=== PATIENT | male | born 1960 | race Caucasian/White ===

== ENCOUNTER 2018-05-10 11:22 | Emergency (ER) | payer OTHER ==
[~2018-05-10] VITALS: Ht 170.2 cm; Wt 112.1 kg
[~2018-05-10 11:22] MED LIST: HYDR25TA6 PO; LISI30TA47 PO; NAPR500T8 PO; OMEP40CA6 PO
[2018-05-10 11:50] VITALS: Ht 170.2 cm; Wt 112.1 kg
[2018-05-10] MEDS ORDERED: SODIUM CHLORIDE 0.9% 1L BAG IV* STA (12:05)
[2018-05-10] MEDS ORDERED: ACETAMINOPHEN 325 MG TAB PO STA (12:05)
--- NOTE | 2018-05-10 12:05 | ERD ---
ER Documentation Chief Complaint Chief Complaint painful urination, abdominal pain dizziness & fever 1 day HPI The patient is a 57-year-old male, presenting to the ER because of fever, dysuria, abdominal pain for 1 day, denies similar symptoms previously, denies cough, congestion, neck pain, chest pain, dyspnea, vomiting, dysuria, diarrhea. He is smokes and drinks, denies illicit drug Past medical history: Hypertension, chronic low back pain Past surgical history: Bilateral inguinal herniorrhaphy and umbilical herniorrhaphy ROS All systems reviewed and are negative except as per history of present illness. Medications Home Meds Active Scripts Ibuprofen* (Motrin*) 600 Mg Tab, 600 MG PO Q6H PRN for PAIN AND OR ELEVATED TEMP, #20 TAB Prov:BRITT ALVARES MD 05/10/18 Phenazopyridine Hcl* (Pyridium*) 200 Mg Tab, 200 MG PO TID PRN for URINARY PAIN, #6 TAB Prov:BRITT ALVARES MD 05/10/18 Cephalexin* (Keflex*) 500 Mg Capsule, 500 MG PO QID for 10 Days, CAP Prov:BRITT ALVARES MD 05/10/18 Reported Medications Tamsulosin Hcl* (Tamsulosin Hcl*) 0.4 Mg Cap.er.24h, 0.4 MG PO HS, CAP 05/10/18 Hydrochlorothiazide* (Hydrochlorothiazide*) 25 Mg Tab, 25 MG PO DAILY, #30 TAB 05/10/18 Lisinopril* (Lisinopril*) 40 Mg Tablet, 40 MG PO DAILY, #30 TAB 05/10/18 Discontinued Reported Medications Omeprazole* (Omeprazole*) 40 Mg Capsule.dr, 40 MG PO DAILY, CAP 08/08/13 Hydrochlorothiazide (Hydrochlorothiazide) 25 Mg Tablet, 25 MG PO DAILY 05/14/13 Naproxen* (Naproxen EC*) 500 Mg Tablet.dr, 500 MG PO BID 05/14/13 Lisinopril* (Lisinopril*) 30 Mg Tablet, 40 MG PO DAILY 05/14/13 Allergies Allergies: Coded Allergies: No Known Allergy (Unverified , 05/10/18) PMhx/Soc Anesthesia Reaction: No 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 Head: Atraumatic. Eyes: Normal Conjunctiva. ENT: Normal External Ears, Nose and Mouth. Neck: Full range of motion. No meningismus. Resp: Clear to auscultation bilaterally. Cardio: Regular rate and rhythm. Abd: Soft, non distended, normal bowel sounds, diffuse and mild abdominal tenderness, no rigidity/rebound/CVA tenderness Skin: No petechiae or rashes. Back: No midline or flank tenderness. Ext: No cyanosis, or edema. Neur: Awake and alert. No focal deficit Psych: Normal Mood and Affect. Result Diagram: 05/10/18 1211 05/10/18 1211 Results 24 hrs Laboratory Tests Test 05/10/18 12:11 05/10/18 12:43 05/10/18 12:52 05/10/18 13:00 White Blood Count 9.5 10^3/ul Red Blood Count 4.67 10^6/ul Hemoglobin 14.3 g/dl Hematocrit 42.5 % Mean Corpuscular 91.0 fl Volume Mean Corpuscular 30.6 pg Hemoglobin Mean Corpuscular 33.6 g/dl Hemoglobin Concen t Red Cell 12.5 % Distribution Width Platelet Count 217 10^3/UL Mean Platelet 8.5 fl Volume Immature 0.400 % Granulocytes % Neutrophils % 88.8 % Lymphocytes % 8.3 % Monocytes % 2.2 % Eosinophils % 0.0 % Basophils % 0.3 % Nucleated Red 0.0 /100WBC Blood Cells % Immature 0.040 10^3/ul Granulocytes # Neutrophils # 8.5 10^3/ul Lymphocytes # 0.8 10^3/ul Monocytes # 0.2 10^3/ul Eosinophils # 0.0 10^3/ul Basophils # 0.0 10^3/ul Nucleated Red 0.0 10^3/ul Blood Cells # Prothrombin Time 14.3 Sec Prothrombin Time 1.1 Ratio INR International 1.10 Normalized Ratio Activated 31.8 Sec Partial Thrombopl ast Time Sodium Level 134 mmol/L Potassium Level 3.5 mmol/L Chloride Level 96 mmol/L Carbon Dioxide 29 mmol/L Level Anion Gap 9 Blood Urea 14 mg/dl Nitrogen Creatinine 0.74 mg/dl Est Glomerular > 60 mL/min Filtrat Rate mL/min Glucose Level 155 mg/dl Calcium Level 9.4 mg/dl Total Bilirubin 1.0 mg/dl Direct Bilirubin 0.00 mg/dl Indirect 1.0 mg/dl Bilirubin Aspartate Amino 26 IU/L Transf (AST/SGOT) Alanine 29 IU/L Aminotransferase (ALT/SGPT) Alkaline 84 IU/L Phosphatase Troponin I < 0.012 ng/ml Total Protein 7.5 g/dl Albumin 4.1 g/dl Globulin 3.40 g/dl Albumin/Globulin 1.20 Ratio Lactic Acid Level 1.3 mmol/L Urine Color YELLOW Urine Clarity SLIGHTLY CLOUDY Urine pH 6.0 Urine Specific 1.012 [place] Urine Ketones TRACE mg/dL Urine Nitrite NEGATIVE mg/dL Urine Bilirubin NEGATIVE mg/dL Urine NEGATIVE mg/dL Urobilinogen Urine Leukocyte 1+ Eric/ul Esterase Urine Microscopic 15 /HPF RBC Urine Microscopic 105 /HPF WBC Urine Bacteria MODERATE /HPF Urine Mucus FEW /HPF Urine Hemoglobin 1+ mg/dL Urine Glucose NEGATIVE mg/dL Urine Total 1+ mg/dl Protein Bedside Urine pH 6.0 (LAB) Bedside Urine 2+ Protein (LAB) Bedside Urine Negative Glucose (UA) Bedside Urine Negative Ketones (LAB) Bedside Urine 1+ Blood Bedside Urine Negative Nitrite (LAB) Bedside Urine Trace Leukocyte Esteras e (L Test 05/10/18 15:00 Lactic Acid Level 1.3 mmol/L Current Medications Medications Dose Sig/Boogie Start Time Status Last (Trade) Ordered Route PRN Stop Time Admin Dose Reason Admin 650 mg ONCE STAT 05/10/18 DC 05/10/18 Acetaminophen PO 12:05 12:25 (Tylenol 05/10/18 12:07 Tab) Sodium 1,980 ml BOLUS OVER 2 05/10/18 DC 05/10/18 Chloride HOURS STAT 12:05 12:26 (NS) IV* 05/10/18 12:07 Piperacillin 100 ml @ ONCE ONCE 05/10/18 DC 05/10/18 Sod/ 200 mls/hr IVPB 12:30 12:38 Tazobactam 05/10/18 12:59 Sod Procedures/MDM [place] [address] Radiology Main Line: [phone] DIAGNOSTIC IMAGING REPORT Patient: STEVE LAI : 1960 Age: 57 Sex: M MR #: [id number] DOS: 05/10/18 1214 Ordering MD: BRITT ALVARES MD Location: E/R Room/Bed: PROCEDURE: CT Abdomen and Pelvis Without Intravenous Contrast CLINICAL INDICATION: Abdominal pain TECHNIQUE: Axial computed tomography images of the abdomen and pelvis without intravenous contrast. Sagittal and coronal reformatted images were created and reviewed. CTDIvol (mGy) = <22.18 mGy>; total DLP (mGy-cm) = <1398.95 mGy.cm> This CT exam was performed using one or more of the following dose reduction techniques: automated exposure control, adjustment of the mA and/or kV according to patient size, and/or use of iterative reconstruction technique. DICOM images are kirill ilable. COMPARISON: None FINDINGS: LUNG BASES: The lung bases appear slightly hyperinflated suggesting emphysema. There is a small rim calcified lesion along the right diaphragmatic pleura measuring 1.8 cm in diameter, likely benign. ABDOMEN: LIVER: Mild hepatomegaly, 18.5 cm. Probable mild hepatic steatosis. GALLBLADDER AND BILE DUCTS: Unremarkable No calcified stones. No ductal dilation. PANCREAS: Unremarkable No ductal dilation. SPLEEN: Unremarkable No splenomegaly. ADRENALS: Mildly hypertrophic adrenals. KIDNEYS AND URETERS: There is mild right perinephric stranding and moderate right periureteric stranding. No stones are seen in the kidneys or ureters. STOMACH AND BOWEL: Colonic diverticula without evidence of diverticulitis. No evidence for small bowel obstruction, free air, or abscess. PELVIS: APPENDIX: Normal appendix. BLADDER: The anterior urinary bladder is displaced into the right inguinal canal and is a portion in the inguinal canal is somewhat distended. There is also fat within the right inguinal hernia and there is slight fat stranding adjacent to the herniated portion of the urinary bladder. There is also a fat-containing left inguinal hernia. REPRODUCTIVE: Normal size prostate with small central calcification. ABDOMEN and PELVIS: INTRAPERITONEAL SPACE: See above. BONES/JOINTS: Degenerative and hypertrophic change of the spine with rightward scoliosis. Deformities of the lower lumbar sacral spine including partial fusion of L4 and L5 and congenital or post surgical deformity of the posterior elements. No lytic or blastic bony lesions. SOFT TISSUES: See above. VASCULATURE: Mild atherosclerotic change of the abdominal vasculature. No evidence for aneurysm. LYMPH NODES: Unremarkable No enlarged lymph nodes. OTHER FINDINGS: IMPRESSION: 1. Right greater than left fat-containing inguinal hernias with a moderate portion of the anterior urinary bladder displaced into the inguinal canal with slight adjacent stranding. Right perinephric and periureteric stranding without visualized stone. This could perhaps be due to displacement of the right UVJ due to the bladder herniation. Pyelonephritis cannot be excluded but no bladder wall thickening is seen to suggest ascending infection. 2. Colonic diverticula without evidence of diverticulitis. No evidence for small bowel obstruction, free air, or abscess. RPTAT: HLBE Physician Daniel Date Time Electronically viewed and signed by Josie Villatoro Physician on 05/10/2018 13:25 LE/ CC: BRITT ALVARES MD [id number] [place] [address] Radiology Main Line: [phone] DIAGNOSTIC IMAGING REPORT Patient: STEVE LAI : 1960 Age: 57 Sex: M MR #: [id number] DOS: 05/10/18 1214 Ordering MD: BRITT ALVARES MD Location: E/R Room/Bed: AMENDMENT: 05/10/2018 2:02:42 PM Awais Fuentes M.d Comparison: 05/10/2018 PROCEDURE: US Abdomen. CLINICAL INDICATION: abdominal pain TECHNIQUE: Multiple real-time images were acquired of the patient's right upper quadrant abdomen and retroperitoneum utilizing a high resolution transducer. COMPARISON: None FINDINGS: The liver demonstrates increased echogenicity. The liver is enlarged in size and no focal solid lesions are seen. The liver measures 20.8 cm in length. The portal vein is patent with normal direction of flow. No intrahepatic biliary dilatation is seen. No gallstones are identified within the gallbladder. There is a small amount of sludge within the gallbladder. There is no pericholecystic fluid or gallbladder wall thickening. The common bile duct measures 6 mm in maximal dimension. The visualized portions of the pancreas are unremarkable. The tail of the pancreas is not seen. No free fluid is identified. The right kidney is normal in size, and demonstrate normal echogenicity and cortical thickness. The right kidney measures 11.5 cm in long dimension. There is no evidence of hydronephrosis. There are no kidney stones. RPTAT: AA IMPRESSION: Mild hepatomegaly with fatty liver. Small amount of sludge within the gallbladder. .Awais Fuentes MD, MD Date Time Electronically viewed and signed by .Awais Fuentes MD, MD on 05/10/2018 14:01 .S/ CC: BRITT ALVARES MD [id number] [place] [address] Radiology Main Line: [phone] DIAGNOSTIC IMAGING REPORT Patient: STEVE LAI : 1960 Age: 57 Sex: M MR #: [id number] DOS: 05/10/18 1205 Ordering MD: BRITT ALVARES MD Location: E/R Room/Bed: PROCEDURE: XR Chest. CLINICAL INDICATION: Sepsis TECHNIQUE: Portable single view of the chest COMPARISON: CR CHEST 08/07/2014 FINDINGS: The cardiomediastinal silhouette appears within normal limits. A small bulge in right diaphragmatic contours seen, corresponding to the small calcified lesion seen on abdominal CT. No acute infiltrate, pleural effusion, or overt congestive heart failure. Improved lung volumes compared with prior. Degenerative change of the spine.. IMPRESSION: Improved lung volumes. No definite acute disease.. RPTAT: HLBE Josie Villatoro, Physician Date Time Electronically viewed and signed by Josie Villatoro, Physician on 05/10/2018 13:26 LE/ CC: BRITT ALVARES MD [id number] EKG: Read by emergency physician Rate/Rhythm: Normal Sinus Rhythm 86 beats/min QRS, ST, T-waves: No ST elevation, no T inversion, prolong QT Impression: Abnormal EKG MEDICAL MAKING DECISION: The patient is a 57-year-old male, presenting to the ER because of acute cystitis, possibly early right pyelonephritis. He was treated with ideal body weight IV fluid, Zosyn IV for acute cystitis, Tylenol for fever with good response. Repeat evaluation, he felt well, repeat abdominal exams were unremarkable. He is stable for present follow-up The differential diagnoses considered include but are not limited to cholelithiasis, cholecystitis, choledocholithiasis, cholangitis, pancreatitis, hepatitis, gastritis, peptic ulcer disease, gastric ulcer, appendicitis, cystitis, diverticulitis, partial small bowel obstruction. Departure Diagnosis: Primary Impression: UTI (urinary tract infection) Additional Impression: Prolonged QT syndrome Condition: Good Comments He was discharged with Keflex, Pyridium, Motrin I discussed the findings with the patient. I advised the patient to follow-up with the primary physician in about 1-2 days, sooner if needed and return if any concern. Disclaimer: Inadvertent spelling and grammatical errors are likely due to EHR/dictation software use and do not reflect on the overall quality of patient care. Also, please note that the electronic time recorded on this note does not necessarily reflect the actual time of the patient encounter. BRITT ALVARES MD May 10, 2018 12:05
[2018-05-10] MEDS ORDERED: PIPER-TAZO 3.375 GM IV (PMX) 100 ML IVPB ONE (12:30)
[2018-05-10] MEDS ORDERED: IBUP-1542 PO (15:50)
[2018-05-10] MEDS ORDERED: PHEN-538 PO (15:50)
[2018-05-10] MEDS ORDERED: CEPH-443 PO (15:50)
[2018-05-10] MEDS ORDERED: HYDR25TA6 PO (16:11)
[2018-05-10] MEDS ORDERED: LISI40TA3 PO (16:11)
[2018-05-10] MEDS ORDERED: TAMS0.4C2 PO (16:12)
[2018-05-10 16:18] VITALS: BP 105/53; PULSE 72; RESP 22
== END 2018-05-10 16:19 | disposition home or self-care (01) ==
LOC: E/R 11:22
DX: N39.0 Urinary tract infection, site not specified (principal); I45.81 Long QT syndrome; R10.9 Unspecified abdominal pain
CPT/HCPCS: 36415; 71045; 74176; 76705; 80053; 81001; 81003; 83605; 84484; 85025; 85610; 85730; 87040; 87086; 93005; 96374; J2543; J7030; Z7502; Z7610

== ENCOUNTER 2018-06-18 18:50 | Emergency (ER) | payer OTHER ==
[~2018-06-18] VITALS: Ht 172.7 cm; Wt 114.7 kg
[~2018-06-18 18:50] MED LIST changes: +CEPH-443 PO; +IBUP-1542 PO; -LISI30TA47 PO; +LISI40TA3 PO; -NAPR500T8 PO; -OMEP40CA6 PO; +PHEN-538 PO; +TAMS0.4C2 PO
[2018-06-18 19:03] VITALS: BP 171/85; PULSE 65; RESP 17; Ht 172.7 cm; Wt 114.7 kg
[2018-06-18] MEDS ORDERED: KETOROLAC 30 MG INJ IM STA (22:32)
[2018-06-18] MEDS ORDERED: HYDROCODONE/APAP (5/325) TAB PO ONE (23:00)
[2018-06-19] MEDS ORDERED: NAPR-985 PO (00:38)
[2018-06-19] MEDS ORDERED: PRED20TA PO (00:39)
--- NOTE | 2018-06-19 01:45 | ERD ---
ER Documentation Chief Complaint Chief Complaint R foot pain x15 days w/ swelling. good CMS, able to walk. no injury HPI History of Present Illness: 57-year-old male with past medical history of hypertension coming in today with complaint of right foot pain is been progressive for 15 days. Patient reports mild swelling. Patient denies any other associated symptoms. No decreased sensation. At home pharmacological/nonpharmacological treatment for symptoms: Denies Denies social concerns; Denies recent foreign travel ROS All systems reviewed and are negative except as per history of present illness. Medications Home Meds Active Scripts Prednisone* (Prednisone*) 20 Mg Tab, 40 MG PO DAILY for SWELLING/INFLAMMATION for 4 Days, TAB Prov:MELISSA SWANN V ADMINISTRATIVE OFFICE MANAGER 06/19/18 Naproxen* (Naprosyn*) 500 Mg Tablet, 500 MG PO BID PRN for PAIN AND/OR INFLAMMATION, #30 TAB Prov:MELISSA SWANN V ADMINISTRATIVE OFFICE MANAGER 06/19/18 Ibuprofen* (Motrin*) 600 Mg Tab, 600 MG PO Q6H PRN for PAIN AND OR ELEVATED TEMP, #20 TAB Prov:BRITT ALVARES MD 05/10/18 Phenazopyridine Hcl* (Pyridium*) 200 Mg Tab, 200 MG PO TID PRN for URINARY PAIN, #6 TAB Prov:BRITT ALVARES MD 05/10/18 Cephalexin* (Keflex*) 500 Mg Capsule, 500 MG PO QID for 10 Days, CAP Prov:BRITT ALVARES MD 05/10/18 Reported Medications Tamsulosin Hcl* (Tamsulosin Hcl*) 0.4 Mg Cap.er.24h, 0.4 MG PO HS, CAP 05/10/18 Hydrochlorothiazide* (Hydrochlorothiazide*) 25 Mg Tab, 25 MG PO DAILY, #30 TAB 05/10/18 Lisinopril* (Lisinopril*) 40 Mg Tablet, 40 MG PO DAILY, #30 TAB 05/10/18 Allergies Allergies: Coded Allergies: No Known Allergy (Unverified , 05/10/18) PMhx/Soc History of Surgery: Yes (bilateral inguinal/umbilical hernia) Anesthesia Reaction: No 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 Neck: Full range of motion. No meningismus. Resp: Clear to auscultation bilaterally Cardio: Regular rate and rhythm, no murmurs Abd: Soft, non tender, non distended. Normal bowel sounds Skin: No petechiae or rashes Back: No midline or flank tenderness Ext: No cyanosis, or edema, tenderness to palpation over top of right foot, no ecchymosis, no deformity, no erythema, no warmth, no breaks in skin. Tenderness to palpation over heel of right foot. Neurovascularly intact to bilateral feet. Neur: Awake and alert Psych: Normal Mood and Affect Results 24 hrs Current Medications Medications Dose Sig/Boogie Start Time Status Last (Trade) Ordered Route PRN Stop Time Admin Dose Reason Admin Ketorolac 30 mg ONCE STAT 06/18/18 DC 06/18/18 Tromethamine IM 22:32 06/18/18 22:39 (Toradol) 22:33 1 tab ONCE ONCE 06/18/18 DC 06/18/18 Acetaminophen PO 23:00 06/18/18 22:38 / 23:01 Hydrocodone Bitart ([place] (5/325)) Procedures/MDM ED course includes a thorough examination and history. Medications: Ketorolac, [place] Imaging: Right foot x-ray Labs: -- Low suspicion for life-threatening medical emergency. Low suspicion for orthopedic or neurovascular emergency that requires hospitalization or immediate surgical intervention. Otherwise healthy patient presenting with constellation of symptoms likely representing uncomplicated heel spur as characterized by history, physical exam findings, radiologic findings. X-ray results showing: IMPRESSION: 1. Plantar and posterior calcaneal osteophytes. 2. Osseous structures otherwise unremarkable. 3. Normal appearing soft tissues. RPTAT: HLRS R-Ayan Bernal, Physician No respiratory distress, otherwise relatively well appearing and nontoxic. Patient reassessment: Patient with decreased pain after medication administration. Questions answered. Disposition given. Patient educated on diagnoses, prescriptions, follow-up care, return precautions. Strict return precautions given for worsening condition; questions answered discharge. Disposition for discharge with followup in 2 days with PCP/clinic. Departure Diagnosis: Primary Impression: Calcaneal spur, right Condition: Stable Patient Instructions: Heel Spur Referrals: [facility] YOU HAVE RECEIVED A MEDICAL SCREENING EXAM AND THE RESULTS INDICATE THAT YOU DO NOT HAVE A CONDITION THAT REQUIRES URGENT TREATMENT IN THE EMERGENCY DEPARTMENT. FURTHER EVALUATION AND TREATMENT OF YOUR CONDITION CAN WAIT UNTIL YOU ARE SEEN IN YOUR DOCTORS OFFICE WITHIN THE NEXT 1-2 DAYS. IT IS YOUR RESPONSIBILITY TO MAKE AN APPOINTMENT FOR FOLOW-UP CARE. IF YOU HAVE A PRIMARY DOCTOR --you should call your primary doctor and schedule an appointment IF YOU DO NOT HAVE A PRIMARY DOCTOR YOU CAN CALL OUR PHYSICIAN REFERRAL HOTLINE AT IF YOU CAN NOT AFFORD TO SEE A PHYSICIAN YOU CAN CHOSE FROM THE FOLLOWING [facility] [address]. [facility] [address] [facility] [address] [facility] [facility] [address] [facility]. [facility] [address] [facility]. [facility]. [address]. [facility] YOU HAVE RECEIVED A MEDICAL SCREENING EXAM AND THE RESULTS INDICATE THAT YOU DO NOT HAVE A CONDITION THAT REQUIRES URGENT TREATMENT IN THE EMERGENCY DEPARTMENT. FURTHER EVALUATION AND TREATMENT OF YOUR CONDITION CAN WAIT UNTIL YOU ARE SEEN IN YOUR DOCTORS OFFICE WITHIN THE NEXT 1-2 DAYS. IT IS YOUR RESPONSIBILITY TO MAKE AN APPOINTMENT FOR FOLOW-UP CARE. IF YOU HAVE A PRIMARY DOCTOR --you should call your primary doctor and schedule and appointment IF YOU DO NOT HAVE A PRIMARY DOCTOR YOU CAN CALL OUR PHYSICIAN REFERRAL HOTLINE AT . IF YOU CAN NOT AFFORD TO SEE A PHYSICIAN YOU CAN CHOSE FROM THE FOLLOWING [facility]: [facility] [address] [place] [address] [facility] [address] [place] [address] [facility] [address] [place] [address] Additional Instructions: Thank you very much for allowing us to participate in your care. Your health and safety is our top priority at [facility]. It is important to read all discharge instructions and education provided in your discharge packet. *There are no fractures/broken bones on your x-ray. Talk to your primary care doctor for possible referral to a supervisor public health nursing; they may be able to inject a corticosteroid into the area that you are having pain to help with pain/inflammation if it is indicated.* Call your primary care doctor TOMORROW for an appointment during the next 2-4 days and bring all the information and medications prescribed. Have prescriptions filled and follow precisely the directions on the label. -Naproxen is a anti-inflammatory/pain medication; take this medication daily as prescribed for the next week to help with swelling/inflammation/pain. --Prednisone is a steroid, which decreases inflammation; uses medication every morning with breakfast to decrease inflammation associated with your foot If the symptoms get worse and your provider is unavailable, return to the Emergency Department immediately. MELISSA SWANN NP June 19, 2018 01:45
== END 2018-06-19 00:49 | disposition home or self-care (01) ==
LOC: FTE 18:50
DX: M77.31 Calcaneal spur, right foot (principal); I10 Essential (primary) hypertension; F17.210 Nicotine dependence, cigarettes, uncomplicated
CPT/HCPCS: 73630; 96372; J1885; Z7502; Z7610